=== PATIENT | female | born 2000 | race Caucasian/White ===

== ENCOUNTER 2022-12-15 14:35 | Outpatient (CLI) | payer MEDICAID ==
[2022-12-17 04:09] LABS: HCV AB Non Reactive (Non Reactive); HIV SCREEN 4TH GENERATION Non Reactive (Non Reactive)
[2022-12-17 05:13] LABS: HSV 1 IGG TYPE SPEC <0.91 index (0.00-0.90); HSV 2 IGG TYPE SPEC <0.91 index (0.00-0.90)
== END 2022-12-15 14:36 | disposition home or self-care (01) ==
LOC: LAB.S 14:35
PROVIDERS: ATTEND Nurse Practitioner
DX: Z11.3 Encounter for screening for infections with a predominantly sexual mode of transmission (principal); N89.9 Noninflammatory disorder of vagina, unspecified
CPT/HCPCS: 36415; 86695; 86696; 86803; 87389

== ENCOUNTER 2023-06-29 08:00 | Outpatient (CLI) | payer MEDICAID ==
[2023-06-29 21:09] LABS: BACTERIAL VAGINOSIS DNA NEGATIVE (NEGATIVE); CANDIDA GLABRATA DNA NEGATIVE (NEGATIVE); CANDIDA GROUP DNA NEGATIVE (NEGATIVE); CANDIDA KRUSEI DNA NEGATIVE (NEGATIVE); TRICHOMONAS VAGINALIS DNA NEGATIVE (NEGATIVE)
== END 2023-06-29 23:59 | disposition home or self-care (01) ==
LOC: LAB.S 08:00
PROVIDERS: ATTEND Physician Assistant Medical
DX: J34.89 Other specified disorders of nose and nasal sinuses (principal); N89.8 Other specified noninflammatory disorders of vagina
CPT/HCPCS: 81514; 87529